=== PATIENT | female | born 1980 | race Caucasian/White ===

== ENCOUNTER 2016-06-03 17:12 | Emergency (ER) | payer OTHER ==
[~2016-06-03] VITALS: Ht 154.9 cm; Wt 81.8 kg
[~2016-06-03 17:12] MED LIST: HYDR250V7 IM; PREN1TAB80 PO; fish oil PO
[2016-06-03] MEDS ORDERED: PROZ10 PO (18:58)
[2016-06-03] MEDS ORDERED: KETOROLAC TROMETHAMINE 60 MG/2 ML VIAL IM ONE (21:15)
[2016-06-03 22:45] VITALS: BP 130/68
== END 2016-06-03 22:47 | disposition home or self-care (01) ==
LOC: EMS 17:13
DX: S39.012A Strain of muscle, fascia and tendon of lower back, initial encounter (principal); X58.XXXA Exposure to other specified factors, initial encounter; Y93.01 Activity, walking, marching and hiking; Y92.89 Other specified places as the place of occurrence of the external cause; Y99.8 Other external cause status
CPT/HCPCS: 72100; 96372; 99284; J1885; 81025